=== PATIENT | female | born 1990 | race African-American/Black ===

== ENCOUNTER 2018-06-20 02:58 | Emergency (ER) | payer MEDICARE, SELFPAY ==
[2018-06-20] MEDS ORDERED: Ondansetron PF 4 MG/2 ML Vial ONE (03:11)
[2018-06-20 03:25] LABS: #Basophils 0.1 thou/uL (0.0-0.2); #Eosinphils 0.1 thou/uL (0.0-0.7); #Lymphocytes 1.1 thou/uL (1.20-3.40); #Monocytes 0.7 thou/uL (0.11-0.59); #Neutrophils 4.3 thou/uL (1.40-6.50); %Basophils 1.1 % (0.0-1.0); %Eosinophils 1.6 % (0.0-10.0); %Lymphocytes 17.7 % (21.0-51.0); %Monocytes 11.4 % (0.0-10.0); %Neutrophils 68.3 % (42.0-75.0); Hemoglobin 12.5 g/dL (12.0-16.0); Mean Corpuscular HGB CONC 31.2 g/dL (32.0-36.0); Mean Corpuscular Hemoglobin 28.2 pg (27.0-31.0); Mean Corpuscular Volume 90.6 fL (78.0-98.0); Platelet Count 317 thou/uL (130-400); Red Blood Cell (RBC) Count 4.43 mill/uL (4.20-5.40); White Blood Cell (WBC) Count 6.3 thou/uL (4.8-10.8)
[2018-06-20 03:31] LABS: BHCG - Serum Negative (NEGATIVE); Pregs Control Background? CLEAR/WHITE (CLR/WHITE); Pregs Control Bar Appear? YES (CONTROL BAR)
[2018-06-20 03:46] LABS: ALT (SGPT) 7 U/L (8-55); AST (SGOT) 18 U/L (5-34); Acetaminophen Less than 6.0 mcg/mL (10.0-30.0); Albumin 4.2 g/dL (3.5-5.0); Alcohol 246 mg/dL (Less than 10); Alkaline Phosphatase 59 U/L (40-150); Anion Gap 20 mmol/L (10-20); BUN (Urea Nitrogen) 5 mg/dL (7.0-18.7); Bilirubin, Total 0.3 mg/dL (0.2-1.2); CK (CPK) 154 U/L (29-168); Calc. Creatinine Clearance 0 mL/min (70-130); Calcium 9.3 mg/dL (7.8-10.44); Carbon Dioxide 18 mmol/L (22-29); Chloride 107 mmol/L (98-107); Estimated GFR-MDRD 81; Globulin 3.8 g/dL (2.4-3.5); Glucose 84 mg/dL (70-105); Potassium 3.1 mmol/L (3.5-5.1); Salicylate Less than 8.0 mg/dL (15.0-30.0); Sodium 142 mmol/L (136-145)
[2018-06-20 03:49] LABS: CKMB 0.8 ng/mL (0-6.6); Troponin I Less than 0.010 ng/mL (< 0.028)
[2018-06-20] MEDS ORDERED: Lorazepam 2 MG/ML VIAL ONE (03:52)
[2018-06-20] MEDS ORDERED: diphenhydrAMINE 50 MG/ML VIAL ONE (03:52)
[2018-06-20] MEDS ORDERED: Haloperidol Lactate 5 MG/ML VIAL ONE (03:52)
[2018-06-20 05:47] LABS: Bilirubin Negative (Negative); Blood, Urine Negative (Negative); Clarity CLEAR (Clear); Glucose, Urine (Dipstick) Negative (Negative); Leukocyte Negative (Negative); Nitrite Negative (Negative); Protein, Urine (Dipstick) Negative (Neg-Trace); Specific Gravity, Urine 1.003 (1.002-1.036); Urobilinogen 0.2 mg/dL (0.2-1.0); pH, Urine 6.5 (5.0-9.0)
[2018-06-20 05:59] LABS: Amphetamine Not Detected (NotDetected); Barbiturates Screen Not Detected (NotDetected); Benzodiazepine Screen Not Detected (NotDetected); Cocaine Metabolite Screen Detected (NotDetected); Medtox Control Line Valid? VALID (VALID); Medtox Reader # READER 1; Methadone Not Detected (NotDetected); Methamphetamine Not Detected (NotDetected); Opiate Screen Not Detected (NotDetected); Oxycodone Screen Not Detected (NotDetected); Phencyclidine (PCP) Not Detected (NotDetected); THC/Cannabinoid Screen Detected (NotDetected); Tricyclic Screen Not Detected (NotDetected)
--- NOTE | 2018-06-20 10:12 | CT ---
CT HEAD WITHOUT CONTRAST: Date: 06/20/18 Multiple axial tomograms obtained through the head without IV enhancement. INDICATION: Mental status change. FINDINGS: Ventricles have normal size and position. No evidence of intracranial mass or hemorrhage. No edema. S inuses and mastoids appear clear. IMPRESSION: No acute findings. POS: H
--- NOTE | 2018-06-20 10:16 | CT ---
CT CERVICAL SPINE: Date: 06/20/18 Multiple axial tomograms obtained through cervical spine with multiplanar reconstruction. HISTORY: Mental status change. FINDINGS: The cervical vertebra maintain normal height and alignment Disc spaces are maintained. No evidence of cervical spine fracture. IMPRESSION: No evidence of cervical spine fracture. POS: BANDAR
== END 2018-06-20 15:23 | disposition home or self-care (01) ==
LOC: ERS 02:58
DX: S02.5XXA Fracture of tooth (traumatic), initial encounter for closed fracture (principal); S00.81XA Abrasion of other part of head, initial encounter; S60.511A Abrasion of right hand, initial encounter; S90.812A Abrasion, left foot, initial encounter; F19.10 Other psychoactive substance abuse, uncomplicated; Y04.8XXA Assault by other bodily force, initial encounter; Y92.008 Other place in unspecified non-institutional (private) residence as the place of occurrence of the external cause
CPT/HCPCS: 36416; 51701; 70450; 72125; 80053; 80306; 80307; 81003; 82550; 82553; 84484; 84703; 85025; 96361; 96372; 96374; 96375; J1200; J1630; J2060; J2405

== ENCOUNTER 2019-01-01 21:50 | Emergency (ER) | payer MEDICARE, OTHER ==
[~2019-01-01 21:50] MED LIST: ISOVUE-370 76%-LOCM 1 ML ONE
[2019-01-01 22:48] LABS: #Basophils 0.1 thou/uL (0.0-0.2); #Eosinphils 0.2 thou/uL (0.0-0.7); #Lymphocytes 2.1 thou/uL (1.20-3.40); #Monocytes 0.9 thou/uL (0.11-0.59); #Neutrophils 3.9 thou/uL (1.40-6.50); %Basophils 1.1 % (0.0-1.0); %Eosinophils 2.1 % (0.0-10.0); %Lymphocytes 28.9 % (21.0-51.0); %Monocytes 13.1 % (0.0-10.0); %Neutrophils 54.8 % (42.0-75.0); Hemoglobin 11.3 g/dL (12.0-16.0); Mean Corpuscular HGB CONC 32.3 g/dL (32.0-36.0); Mean Corpuscular Hemoglobin 30.9 pg (27.0-31.0); Mean Corpuscular Volume 95.6 fL (78.0-98.0); Mean Platelet Volume 7.9 fL (7.4-10.4); Platelet Count 258 thou/uL (130-400); RBC Distribution Width 13.2 % (11.5-14.5); Red Blood Cell (RBC) Count 3.65 mill/uL (4.20-5.40); White Blood Cell (WBC) Count 7.2 thou/uL (4.8-10.8)
[2019-01-01 22:56] LABS: ALT (SGPT) 8 U/L (8-55); AST (SGOT) 12 U/L (5-34); Albumin 3.8 g/dL (3.5-5.0); Alkaline Phosphatase 48 U/L (40-150); Anion Gap 11 mmol/L (10-20); BUN (Urea Nitrogen) Less than 4 mg/dL (7.0-18.7); Bilirubin, Total 0.4 mg/dL (0.2-1.2); Calc. Creatinine Clearance 0 mL/min (70-130); Carbon Dioxide 27 mmol/L (22-29); Chloride 102 mmol/L (98-107); Estimated GFR-MDRD Greater than 90; Glucose 85 mg/dL (70-105); Lipase 140 U/L (8-78); Protein, Total 6.8 g/dL (6.0-8.3); Sodium 137 mmol/L (136-145)
[2019-01-01] MEDS ORDERED: Ketorolac Tromethamine 30 MG/ML VIAL ONE (23:03)
[2019-01-01] MEDS ORDERED: Ondansetron PF 4 MG/2 ML Vial ONE (23:03)
[2019-01-01 23:37] LABS: Bilirubin Negative (Negative); Blood, Urine Negative (Negative); Clarity CLEAR (Clear); Glucose, Urine (Dipstick) Negative (Negative); Leukocyte Negative (Negative); Nitrite Negative (Negative); Protein, Urine (Dipstick) Negative (Neg-Trace); Specific Gravity, Urine 1.006 (1.002-1.036); Urobilinogen 0.2 mg/dL (0.2-1.0); pH, Urine 6.5 (5.0-9.0)
[2019-01-01 23:41] LABS: Pregnancy Test - Urine (BHCG) Negative (Negative); Pregu Control Background? CLEAR/WHITE (CLR/WHITE); Pregu Control Bar Appear? YES (CONTROL BAR); Specific Gravity 1.006 (1.002-1.036)
[2019-01-01] MEDS ORDERED: Morphine 4 MG/ML VIAL ONE (23:48)
--- NOTE | 2019-01-02 00:10 | CT ---
EXAM: CT ABDOMEN AND PELVIS HISTORY: Crohn's disease. Intermittent abdominal pain, x2 months. Worsening today. COMPARISON: 05/27/2018 Procedure: Multiple contiguous axial images were obtained and a CT of the abdomen and pelvis with IV contrast. C oronal reformats were performed. FINDINGS: Lower Chest: within normal limits. Vessels: Normal caliber aorta. Abdomen: Portal vein:Patent Gallbladder: No calcified gallstones. Normal caliber wall. Liver: within normal limits. Pancreas: within normal limits. Spleen: within normal limits. Adrenals: within normal limits. Kidneys: within normal limits. Peritoneum: No ascites or free air, no fluid collection. Bowel: Limited evaluation of the alimentary canal due to lack of oral contrast. Grossly unremarkable gastric mucosa. There appear to be multiple thickened loops of small bowel in the left hemiabdomen. There is dilatation of the right hemicolon with possible sutures suggesting previous resection, possi juan compatible with a right hemicolectomy. There is abrupt caliber change and bowel wall thickening involving the mid to distal transverse colon, splenic flexure, and proximal descending colon. The mid to distal descending colon is unremarkable. There is mild mucosal prominence in the visualized proximal sigmoid colon. Mesentery and Retroperitoneum: No enlarged mesenteric or retroperitoneal lymph nodes. Abdominal Wall: within normal limits. Pelvis: Reproductive Organs: Uterus is grossly unremarkable. 4.6 x 3.3 cm hypodensity in the right adnexa. 3. 9 x 3.0 cm hypodensity in the left adnexa. Bilateral ovarian cysts are suspected. Note, the right adnexal lesion has septations.. Pelvis: There does appear to be free fluid in the pelvis, incompletely evaluated. Heterogeneous appea ring lower uterine segment, incompletely evaluated. Bladder: Decompressed. Limited evaluation. Bones: within normal limits. IMPRESSION: 1. Multifocal wall thickening involving the colon, suggesting multifocal inflammatory bowel disease. 2. Prominent and thickened bowel wall of multiple segments of small bowel, likely also due to inflam matory bowel disease.. 3. Bilateral adnexal hypodensities along with irregular attenuation of the lower uterine segment. Be tter interrogation with pelvic ultrasound is recommended.
== END 2019-01-02 00:49 | disposition home or self-care (01) ==
LOC: ERS 21:50
DX: R10.33 Periumbilical pain (principal); R19.7 Diarrhea, unspecified; R11.0 Nausea; Z87.891 Personal history of nicotine dependence
CPT/HCPCS: 36415; 74177; 80053; 81003; 81025; 83690; 85025; 96361; 96374; 96375; J1885; J2270; J2405; Q9966

== ENCOUNTER 2019-01-03 07:22 | Emergency (ER) | payer MEDICARE, MEDICAID ==
[2019-01-03 08:01] LABS: #Basophils 0.1 thou/uL (0.0-0.2); #Eosinphils 0.1 thou/uL (0.0-0.7); #Lymphocytes 1.5 thou/uL (1.20-3.40); #Monocytes 0.7 thou/uL (0.11-0.59); %Basophils 0.8 % (0.0-1.0); %Eosinophils 1.7 % (0.0-10.0); %Lymphocytes 24.1 % (21.0-51.0); %Monocytes 11.3 % (0.0-10.0); Hemoglobin 10.9 g/dL (12.0-16.0); Mean Corpuscular HGB CONC 33.1 g/dL (32.0-36.0); Mean Corpuscular Hemoglobin 31.3 pg (27.0-31.0); Mean Corpuscular Volume 94.5 fL (78.0-98.0); Mean Platelet Volume 8.4 fL (7.4-10.4); Platelet Count 245 thou/uL (130-400); Red Blood Cell (RBC) Count 3.49 mill/uL (4.20-5.40); White Blood Cell (WBC) Count 6.4 thou/uL (4.8-10.8)
--- NOTE | 2019-01-03 08:11 | RAD ---
XR Chest 1 View Portable HISTORY: Chest pain COMPARISON: None FINDINGS: The heart size is normal. The lungs are well expanded without focal areas of consolidation, pneumothorax or pleural effusions. IMPRESSION: No radiographic evidence of acute cardiopulmonary process.
[2019-01-03 08:22] LABS: Anion Gap 13 mmol/L (10-20); BUN (Urea Nitrogen) Less than 4 mg/dL (7.0-18.7); Calc. Creatinine Clearance 0 mL/min (70-130); Carbon Dioxide 24 mmol/L (22-29); Chloride 103 mmol/L (98-107); Estimated GFR-MDRD Greater than 90; Glucose 85 mg/dL (70-105); Sodium 136 mmol/L (136-145)
[2019-01-03] MEDS ORDERED: Morphine 4 MG/ML VIAL ONE (08:23)
== END 2019-01-03 09:48 | disposition home or self-care (01) ==
LOC: EEVIPCON 07:22 → ERS 07:22
DX: K50.90 Crohn's disease, unspecified, without complications (principal); D50.9 Iron deficiency anemia, unspecified; Z86.19 Personal history of other infectious and parasitic diseases; Z87.891 Personal history of nicotine dependence
CPT/HCPCS: 71045; 80048; 85025; 96361; 96374; J2270

== ENCOUNTER 2019-01-20 02:41 | Emergency (ER) | payer MEDICARE, MEDICAID | END 2019-01-20 03:30 | disposition left against medical advice (07) | LOC: ERS 02:41 | DX: R10.9 Unspecified abdominal pain (principal); F17.210 Nicotine dependence, cigarettes, uncomplicated; F41.9 Anxiety disorder, unspecified | CPT/HCPCS: 99284 ==

== ENCOUNTER 2019-03-19 03:35 | Emergency (ER) | payer MEDICARE, MEDICAID | END 2019-03-19 03:50 | disposition left against medical advice (07) | LOC: ERS 03:35 | DX: Z53.21 Procedure and treatment not carried out due to patient leaving prior to being seen by health care provider (principal) ==

== ENCOUNTER 2019-03-22 22:42 | Emergency (ER) | payer MEDICAID, MEDICARE, OTHER ==
[2019-03-22] MEDS ORDERED: Acetaminophen 500 MG TAB ONE (23:15)
[2019-03-22 23:51] LABS: #Monocytes 0.7 thou/uL (0.11-0.59); #Neutrophils 10.4 thou/uL (1.40-6.50); %Basophils 0.2 % (0.0-1.0); %Eosinophils 0.1 % (0.0-10.0); %Lymphocytes 7.9 % (21.0-51.0); %Monocytes 5.4 % (0.0-10.0); %Neutrophils 86.4 % (42.0-75.0); Hemoglobin 11.4 g/dL (12.0-16.0); Mean Corpuscular HGB CONC 31.6 g/dL (32.0-36.0); Mean Corpuscular Hemoglobin 30.3 pg (27.0-31.0); Mean Corpuscular Volume 95.9 fL (78.0-98.0); Mean Platelet Volume 8.3 fL (7.4-10.4); Platelet Count 233 thou/uL (130-400); Red Blood Cell (RBC) Count 3.78 mill/uL (4.20-5.40)
[2019-03-22 23:59] LABS: BHCG - Serum Negative (NEGATIVE); Pregs Control Background? CLEAR/WHITE (CLR/WHITE); Pregs Control Bar Appear? YES (CONTROL BAR)
[2019-03-23 00:14] LABS: ALT (SGPT) 7 U/L (8-55); AST (SGOT) 9 U/L (5-34); Albumin 3.2 g/dL (3.5-5.0); Alkaline Phosphatase 48 U/L (40-150); Anion Gap 9 mmol/L (10-20); BUN (Urea Nitrogen) 11 mg/dL (7.0-18.7); Bilirubin, Total Less than 0.2 mg/dL (0.2-1.2); Calc. Creatinine Clearance 0 mL/min (70-130); Calcium 8.6 mg/dL (7.8-10.44); Carbon Dioxide 26 mmol/L (22-29); Chloride 105 mmol/L (98-107); Estimated GFR-MDRD Greater than 90; Globulin 2.6 g/dL (2.4-3.5); Glucose 135 mg/dL (70-105); Lipase 66 U/L (8-78); Potassium 4.1 mmol/L (3.5-5.1); Protein, Total 5.8 g/dL (6.0-8.3); Sodium 136 mmol/L (136-145)
== END 2019-03-23 01:45 | disposition home or self-care (01) ==
LOC: ERS 22:42
DX: R10.31 Right lower quadrant pain (principal); R19.7 Diarrhea, unspecified; D50.9 Iron deficiency anemia, unspecified; F41.9 Anxiety disorder, unspecified; F17.210 Nicotine dependence, cigarettes, uncomplicated; Z79.899 Other long term (current) drug therapy
CPT/HCPCS: 36415; 80053; 83690; 84703; 85025; 86140; 96372; 99284; J0500

== ENCOUNTER 2019-04-02 01:48 | Emergency (ER) | payer OTHER ==
[2019-04-02 03:09] LABS: #Basophils 0.1 thou/uL (0.0-0.2); #Eosinphils 0.1 thou/uL (0.0-0.7); #Lymphocytes 2.3 thou/uL (1.20-3.40); #Monocytes 1.6 thou/uL (0.11-0.59); #Neutrophils 11.5 thou/uL (1.40-6.50); %Basophils 0.4 % (0.0-1.0); %Eosinophils 0.6 % (0.0-10.0); %Lymphocytes 14.9 % (21.0-51.0); %Monocytes 10.1 % (0.0-10.0); Hemoglobin 12.6 g/dL (12.0-16.0); Mean Corpuscular HGB CONC 32.8 g/dL (32.0-36.0); Mean Corpuscular Hemoglobin 30.9 pg (27.0-31.0); Mean Corpuscular Volume 94.3 fL (78.0-98.0); Platelet Count 212 thou/uL (130-400); RBC Distribution Width 16.5 % (11.5-14.5); Red Blood Cell (RBC) Count 4.07 mill/uL (4.20-5.40); White Blood Cell (WBC) Count 15.6 thou/uL (4.8-10.8)
[2019-04-02 03:26] LABS: Anion Gap 12 mmol/L (10-20); BUN (Urea Nitrogen) 9 mg/dL (7.0-18.7); Calc. Creatinine Clearance 0 mL/min (70-130); Calcium 9.2 mg/dL (7.8-10.44); Carbon Dioxide 24 mmol/L (22-29); Chloride 101 mmol/L (98-107); Estimated GFR-MDRD Greater than 90; Glucose 85 mg/dL (70-105); Potassium 3.2 mmol/L (3.5-5.1); Sodium 134 mmol/L (136-145)
--- NOTE | 2019-04-02 07:52 | RAD ---
EXAM: Single view of the chest HISTORY: Chest pain COMPARISON: 01/03/2019 FINDINGS: Single view of the chest shows a normal sized cardiomediastinal silhouette. There is no marcos dence of consolidation, mass, or pleural effusion. The bones are unremarkable. IMPRESSION: No evidence of acute cardiopulmonary disease
== END 2019-04-02 03:33 | disposition home or self-care (01) ==
LOC: ERS 01:48
DX: R06.02 Shortness of breath (principal); R10.10 Upper abdominal pain, unspecified; D50.9 Iron deficiency anemia, unspecified; F41.9 Anxiety disorder, unspecified; F17.210 Nicotine dependence, cigarettes, uncomplicated; Z79.899 Other long term (current) drug therapy
CPT/HCPCS: 71045; 80048; 85025; 93005

== ENCOUNTER 2019-04-24 16:49 | Emergency (ER) | payer MEDICAID, MEDICARE, OTHER ==
[2019-04-24 17:31] LABS: Bacteria/HPF None Seen HPF (None Seen); Bilirubin Negative (Negative); Blood, Urine Negative (Negative); Clarity Clear (Clear); Glucose, Urine (Dipstick) Normal (Negative); Leukocyte 25 Leu/uL (Negative); Nitrite Negative (Negative); Protein, Urine (Dipstick) Negative (Neg-Trace); RBC/HPF 0-3 HPF (0-3); Squamous Epithelial 0-3 HPF (0-3); Urobilinogen Normal mg/dL (Less than 2); WBC/HPF 0-3 HPF (0-3)
[2019-04-24 17:34] LABS: Pregnancy Test - Urine (BHCG) Negative (Negative); Pregu Control Background? CLEAR/WHITE (CLR/WHITE); Pregu Control Bar Appear? YES (CONTROL BAR); Specific Gravity 1.006 (1.002-1.036)
[2019-04-24 17:41] LABS: Amphetamine Not Detected (NotDetected); Barbiturates Screen Not Detected (NotDetected); Benzodiazepine Screen Not Detected (NotDetected); Cocaine Metabolite Screen Detected (NotDetected); Medtox Control Line Valid? VALID (VALID); Medtox Reader # READER 4; Methadone Not Detected (NotDetected); Methamphetamine Not Detected (NotDetected); Opiate Screen Not Detected (NotDetected); Oxycodone Screen Not Detected (NotDetected); Phencyclidine (PCP) Detected (NotDetected); THC/Cannabinoid Screen Detected (NotDetected); Tricyclic Screen Not Detected (NotDetected)
[2019-04-24] MEDS ORDERED: Lorazepam 2 MG/ML VIAL ONE (17:57)
[2019-04-24 17:58] LABS: #Eosinphils 0.1 thou/uL (0.0-0.7); #Lymphocytes 1.2 thou/uL (1.20-3.40); #Neutrophils 5.1 thou/uL (1.40-6.50); %Basophils 0.5 % (0.0-1.0); %Eosinophils 0.9 % (0.0-10.0); %Lymphocytes 16.8 % (21.0-51.0); %Monocytes 13.4 % (0.0-10.0); %Neutrophils 68.5 % (42.0-75.0); Hemoglobin 12.1 g/dL (12.0-16.0); Mean Corpuscular HGB CONC 32.8 g/dL (32.0-36.0); Mean Corpuscular Hemoglobin 31.3 pg (27.0-31.0); Mean Corpuscular Volume 95.2 fL (78.0-98.0); Mean Platelet Volume 8.1 fL (7.4-10.4); Platelet Count 212 thou/uL (130-400); RBC Distribution Width 15.6 % (11.5-14.5); Red Blood Cell (RBC) Count 3.87 mill/uL (4.20-5.40); White Blood Cell (WBC) Count 7.4 thou/uL (4.8-10.8)
[2019-04-24 18:18] LABS: Acetaminophen Less than 6.0 mcg/mL (10.0-30.0); Alcohol Less than 10 mg/dL (Less than 10); Salicylate Less than 8.0 mg/dL (15.0-30.0)
[2019-04-24 18:22] LABS: ALT (SGPT) 13 U/L (8-55); AST (SGOT) 15 U/L (5-34); Albumin 3.6 g/dL (3.5-5.0); Alkaline Phosphatase 60 U/L (40-150); Anion Gap 10 mmol/L (10-20); BUN (Urea Nitrogen) 7 mg/dL (7.0-18.7); Bilirubin, Total 0.2 mg/dL (0.2-1.2); CK (CPK) 41 U/L (29-168); Calc. Creatinine Clearance 0 mL/min (70-130); Carbon Dioxide 28 mmol/L (22-29); Chloride 106 mmol/L (98-107); Estimated GFR-MDRD Greater than 90; Globulin 2.7 g/dL (2.4-3.5); Glucose 66 mg/dL (70-105); Potassium 3.2 mmol/L (3.5-5.1); Protein, Total 6.3 g/dL (6.0-8.3); Sodium 141 mmol/L (136-145)
== END 2019-04-25 13:54 | disposition home or self-care (01) ==
LOC: ERS 16:49
DX: F14.10 Cocaine abuse, uncomplicated (principal); F12.10 Cannabis abuse, uncomplicated; F16.10 Hallucinogen abuse, uncomplicated; F41.9 Anxiety disorder, unspecified; Z87.891 Personal history of nicotine dependence
CPT/HCPCS: 36415; 51701; 80053; 80306; 80307; 81003; 81015; 81025; 82550; 84443; 85025; 96372; J2060

== ENCOUNTER 2019-10-11 07:59 | Emergency (ER) | payer MEDICAID, MEDICARE, OTHER ==
[2019-10-11 08:41] LABS: #Basophils 0.1 thou/uL (0.0-0.2); #Eosinphils 0.1 thou/uL (0.0-0.7); #Lymphocytes 1.4 thou/uL (1.20-3.40); #Monocytes 0.7 thou/uL (0.11-0.59); %Basophils 1.3 % (0.0-1.0); %Eosinophils 2.3 % (0.0-10.0); %Lymphocytes 21.9 % (21.0-51.0); %Monocytes 11.3 % (0.0-10.0); %Neutrophils 63.2 % (42.0-75.0); Hemoglobin 12.6 g/dL (12.0-16.0); Mean Corpuscular HGB CONC 32.6 g/dL (32.0-36.0); Mean Corpuscular Hemoglobin 30.8 pg (27.0-31.0); Mean Corpuscular Volume 94.5 fL (78.0-98.0); Mean Platelet Volume 7.3 fL (7.4-10.4); Platelet Count 296 thou/uL (130-400); RBC Distribution Width 14.6 % (11.5-14.5); White Blood Cell (WBC) Count 6.4 thou/uL (4.8-10.8)
[2019-10-11 08:47] LABS: Bilirubin Negative (Negative); Blood, Urine Negative (Negative); Clarity Clear (Clear); Glucose, Urine (Dipstick) Normal (Negative); Leukocyte Negative Leu/uL (Negative); Nitrite Negative (Negative); Protein, Urine (Dipstick) Negative (Neg-Trace); Urobilinogen Normal mg/dL (Less than 2)
[2019-10-11 08:48] LABS: Pregnancy Test - Urine (BHCG) Negative (Negative); Pregu Control Background? CLEAR/WHITE (CLR/WHITE); Pregu Control Bar Appear? YES (CONTROL BAR); Specific Gravity 1.017 (1.002-1.036)
[2019-10-11 09:00] LABS: ALT (SGPT) 27 U/L (8-55); AST (SGOT) 28 U/L (5-34); Alkaline Phosphatase 65 U/L (40-110); Anion Gap 10 mmol/L (10-20); BUN (Urea Nitrogen) 9 mg/dL (7.0-18.7); Bilirubin, Total 0.2 mg/dL (0.2-1.2); Calc. Creatinine Clearance 0 mL/min (70-130); Calcium 8.9 mg/dL (7.8-10.44); Carbon Dioxide 27 mmol/L (22-29); Chloride 102 mmol/L (98-107); Estimated GFR-MDRD Greater than 90; Globulin 3.3 g/dL (2.4-3.5); Glucose 103 mg/dL (70-105); Potassium 4.2 mmol/L (3.5-5.1); Protein, Total 7.3 g/dL (6.0-8.3); Sodium 135 mmol/L (136-145)
--- NOTE | 2019-10-11 12:55 | ULT ---
PELVIC ULTRASOUND: HISTORY: Right-sided pelvic pain. COMPARISON: Prior CT examinations of 01/01 and 05/27/2018 and also review of a pelvic ultrasound of 12/05/2016. FINDINGS: Real-time imaging of the pelvis was obtained both transabdominally as well as with an endovaginal pro be. There is fluid within the endometrium. The uterus measures approximately 4.6 cm in size. There appears to be free fluid in the left side of the pelvis and there is also a left ovarian cyst w hich has some septation within it. It measures approximately 4.7 cm. On the right side, anatomy is very distorted. There are septated cystic areas which are seen along t he fundus region of the uterus. Previous CTs have shown a cyst. These do not appear to represent abdias wel loops, measuring approximately 6.5 cm in maximum dimension. Directly adjacent to this and along the right side of the uterus is a heterogeneous more rounded mass-like area measuring 3.7 x 4.6 cm. This is either a very complex cyst or a solid lesion. It is potentially a very distorted edematous r ight ovary, although it does not have the typical architecture of an ovary. There is no flow demonst rated within this. IMPRESSION: 1. Free fluid along the left side of the uterus. 2. Left ovarian cyst. 3. It is difficult to definitely identify the structures of the right ovary; however, there is a het erogeneous more solid-appearing mass which would be in the expected position of the right ovary. Thi s could represent some type of very complex cystic lesion, but I cannot exclude this is a swollen enl arged ovary. There is no flow demonstrated within it and, therefore, I cannot exclude this is a tors ion. There are septated cystic structures which are adjacent to this area. This potentially fluid-f illed bowel loops, but on previous CT examination these appear to represent right ovarian cysts. Mark castro discussed with Dr. Santa. CODE CR POS: BANDAR
--- NOTE | 2019-10-11 13:10 | CON ---
DATE OF CONSULTATION: 10/11/2019 LOCATION: ER, Bed 2. TIME OF EVALUATION: Roughly 12:10. REASON FOR EVALUATION: Questionable flow to the right ovary on ultrasound. REQUESTING PHYSICIAN: Dr. Santa from the ER. HISTORY OF PRESENT ILLNESS: This is a 29-year-old , G0 with a history of Crohn disease, who follows Dr. Idris Hyde, and has an appointment coming up. She states she had some lower abdominal pain and had a last bout of Crohn flare a couple of weeks ago. She denies nausea, vomiting, or fever. She denies any colicky abdominal pain. She also had some on and off vaginal discharge. I was called because the ER ultrasound showed a left ovarian cyst, which is maybe a small hemorrhagic cyst, but the right ovary had concern for no flow. PAST MEDICAL HISTORY: Significant for Crohn disease. She also had history of pancreatitis. PAST SURGICAL HISTORY: Significant for an exploratory laparotomy and small bowel resection. SOCIAL/DRUG HISTORY: The patient has known IV heroin use and marijuana use. She also uses tobacco regularly. ALLERGIES: NONE. PHYSICAL EXAMINATION: VITAL SIGNS: Her blood pressure is 90/65, pulse is 75, O2 saturation is 100%. GENERAL: She is in no acute distress. ABDOMEN: Soft and nontender, and there is no evidence of rebound. There is no vaginal bleeding grossly, although a pelvic exam was not performed. LABORATORY DATA: On laboratory assessment, her vaginitis panel 3 shows bacterial vaginosis. ASSESSMENT: This is a 29-year-old with known Crohn disease with concern for "limited or no flow" on the right side. I have discussed the case with Dr. Santa and the patient. As the diagnosis of torsion is made clinically, and as the patient is not in clinical distress, I do not suspect a clinical diagnosis of torsion. Decreased blood flow may be an incidental finding or may be limited by her history of Crohn's and possible adhesions getting in the way of the ultrasound finding. I do not suspect that this patient is actively torting. PLAN: 1. I have discussed and evaluated the patient at bedside. 2. I told her that if symptoms progress, obviously she needs to seek followup. 3. She does not have a regularly scheduled [facility] [employer] provider, but I did recommend she follow up in about 2 weeks just to re-affirm that the cyst on the ovary is resolving. 4. No acute indication for surgical intervention at this time. 5. We will offer her Flagyl for her bacterial vaginosis history. Job ID: [id number]
== END 2019-10-11 12:18 | disposition home or self-care (01) ==
LOC: ERS 07:59
DX: N76.0 Acute vaginitis (principal); N83.201 Unspecified ovarian cyst, right side; N83.202 Unspecified ovarian cyst, left side; F17.210 Nicotine dependence, cigarettes, uncomplicated; D50.9 Iron deficiency anemia, unspecified; F41.9 Anxiety disorder, unspecified
CPT/HCPCS: 36415; 76856; 80053; 81003; 81025; 83690; 85025; 86140; 87480; 87491; 87510; 87591; 87660